=== PATIENT | female | born 1985 ===

== ENCOUNTER 2018-07-10 22:23 | Emergency (ER) | payer SELFPAY ==
[2018-07-10 22:38] VITALS: RESP 18; TEMP 98.1
[2018-07-10 23:45] LABS: BASO % 0.3 % (0.0-2.0); EOS % 0.5 % (0.0-4.0); HEMOGLOBIN 13.3 g/dL (12.0-16.0); LYMPH # 2.3 K/uL (1.0-4.3); LYMPH % 23.9 % (20.0-40.0); MEAN CELL VOLUME 90.6 fl (81.0-99.0); MEAN CORPUSCULAR HEMOGLOBIN 31.3 pg (27.0-31.0); MEAN CORPUSCULAR HGB CONC 34.5 g/dL (33.0-37.0); MONO # 0.5 K/uL (0.0-0.8); MONO % 5.7 % (0.0-10.0); NEUT # 6.6 K/uL (1.8-7.0); NEUT % 69.6 % (50.0-75.0); NRBC % 0.1 % (0.0-0.0); RBC 4.27 Mil/uL (3.80-5.20); RED CELL DISTRIBUTION WIDTH 12.6 % (11.5-14.5); WHITE BLOOD COUNT 9.5 K/uL (4.8-10.8)
[2018-07-10 23:57] LABS: INR 1.1; PROTHROMBIN TIME 12.7 Seconds (9.8-13.1)
--- NOTE | 2018-07-11 00:09 | ED PDOC ---
HPI: General Adult Time Seen by Provider: 07/10/18 22:30 Chief Complaint (Nursing): Female Genitourinary Chief Complaint (Provider): Vaginal Bleeding History Per: Patient, Water Supervisor (Katey Cuba # [id number]) History/Exam Limitations: language barrier Onset/Duration Of Symptoms: Days (x3), Worse Since (today) Current Symptoms Are (Timing): Still Present Additional Complaint(s): Patient is a 33 y/o female with no significant PMHx who presents to the ED for evaluation of brownish spotting for the past three days and heavy vaginal bleeding onset today. Patient denies passage of clots or visible tissue. Patient denies urinary symptoms and any further complications. Of note, patient is 8 weeks and 4 days . Patient states she saw her Surface Grinder once for without an ultrasound. Blood work was performed at this time, however, the results are unknown. PCP: [facility] Past Medical History Reviewed: Historical Data, Nursing Documentation, Vital Signs Vital Signs: Last Vital Signs Temp 98.1 F 07/10/18 22:32 Pulse 78 07/10/18 22:32 Resp 18 07/10/18 22:32 BP 128/89 07/10/18 22:32 Pulse Ox 100 07/10/18 22:32 Primary Care Provider: FAMILY PROVIDER,NO - Medical History PMH: No Chronic Diseases - Surgical History Surgical History: Cholecystectomy - Family History Family History: States: No Known Family Hx - Allergies Allergies/Adverse Reactions: Allergies Allergy/AdvReac Type Severity Reaction Status Date / Time No Known Allergies Allergy Verified 07/10/18 22:32 Review of Systems ROS Statement: Except As Marked, All Systems Reviewed And Found Negative Genitourinary Female: Positive for: Vaginal Bleeding, Other (brownish spotting). Negative for: Dysuria, Frequency, Incontinence, Hematuria Physical Exam - Reviewed Nursing Documentation Reviewed: Yes Vital Signs Reviewed: Yes - Physical Exam Appears: Positive for: Non-toxic, No Acute Distress Head Exam: Positive for: ATRAUMATIC, NORMAL INSPECTION, NORMOCEPHALIC Skin: Positive for: Normal Color, Warm, DRY Eye Exam: Positive for: EOMI, Normal appearance, PERRL Neck: Positive for: Normal, Painless ROM, Supple Cardiovascular/Chest: Positive for: Regular Rate, Rhythm. Negative for: Murmur Respiratory: Positive for: Normal Breath Sounds. Negative for: Respiratory Distress Gastrointestinal/Abdominal: Positive for: Normal Exam, Soft. Negative for: Tenderness Back: Positive for: Normal Inspection. Negative for: L CVA Tenderness, R CVA Tenderness Extremity: Positive for: Normal ROM. Negative for: Pedal Edema, Deformity Lymphatic: Positive for: Deferred Neurological/Psych: Positive for: Alert, Oriented (x3) - Laboratory Results Result Diagrams: 07/10/18 23:37 07/10/18 23:37 Lab Results: PT 12.7 Seconds (9.8-13.1) 07/10/18 23:37 INR 1.1 07/10/18 23:37 APTT 34.0 Seconds (25.6-37.1) 07/10/18 23:37 - ECG O2 Sat by Pulse Oximetry: 100 (RA) Pulse Ox Interpretation: Normal Medical Decision Making Medical Decision Making: Time: 2240 Impression: Most Likely Threatened Plan: Type and Screen BMP Beta-HCG, Quantitative Troponin I CBC PTT Prothrombin Time Preg 1st Trimester/ OB TV [US] Reassess Time: 1126 FINDINGS: GESTATION: UTERUS: Uterus measures 9.8 x 6.4 x 7.6 cm and appears anteverted. CERVIX: Closed. Unremarkable. OVARIES: Unremarkable. No mass. FREE FLUID: No free fluid. MISCELLANEOUS: A gestational sac is present. No yolk sac is seen. A pole is present. [place] rump length measures 2.3 cm compatible with 9.0 weeks estimated ultrasound age. No heart motion is seen. This is compatible with demise. Right ovary measures 2.6 x 2.4 x 1.9 cm. Left ovary measures 3.0 x 1.6 x 1.9 cm. IMPRESSION: 1. An approximately 9 week pole is seen. However, there is no heart motion identified. The findings are compatible with demise. 2. These findings are being telephoned to the referring clinicians at the time of this interpretation. Electronically signed on July 10, 2018 11:26:05 PM EDT by: Gerald Murrieta M.D., Certified by [facility], Diagnostic Radiology Time: 1135 Discussed findings of demise with patient. Patient informed nothing could be done to stop the progrewssion of a a miscarriage. Patient advised to confirm status to followup with Surface Grinder to repeat HCG levels. Patient to be disc harged home. Scribe Attestation: Documented by Chris Mae, acting as a scribe Elizabeth Gilbert MD Provider Scribe Attestation: All medical record entries made by the Scribe were at my direction and personally dictated by me. I have reviewed the chart and agree that the record accurately reflects my personal performance of the history, physical exam, medical decision making, and the department course for this patient. I have also personally directed, reviewed, and agree with the discharge instructions and disposition. Disposition - Clinical Impression Clinical Impression: Threatened miscarriage in early - Disposition Disposition Time: 01:15 Condition: STABLE Additional Instructions: Follow up with ancient art curator in 3 to 5 days for further evaluation of labs and status. Return to the emergency department for severe bleeding, pain, or fever. Instructions: Threatened Miscarriage (DC) Forms: [facility] (Bulgarian) Print Language: INDIAN
[2018-07-11 00:28] LABS: BLOOD UREA NITROGEN 13 mg/dl (7-17); GFR NON-AFRICAN AMERICAN > 60
[2018-07-11 00:29] LABS: CALCIUM 9.4 mg/dL (8.4-10.2)
[2018-07-11 02:22] VITALS: BP 148/91; PULSE 88
[2018-07-11 05:06] VITALS: O2SAT 100
--- NOTE | 2018-07-11 12:35 | US ---
Date of service: 07/10/2018 PROCEDURE: OB Pelvic Ultrasound HISTORY: vaginal bleeding LMP: 05/10/2018 COMPARISON: None available. FINDINGS: UTERUS: Gestational sac: 31 mm equivalent to 8 weeks 0 days. [place]-rump length 23 mm equivalent to 9 weeks 0 days No detectable cardiac activity age (Ultrasound estimated): 8 weeks 5 days [place]-gestational hemorrhage: None. Date of delivery (Ultrasound estimated) : 02/15/2019 Uterus measures 9.8 x 6.4 x 7.6 cm. Normal in size and appearance. CERVIX: Long and closed. No cervical abnormality seen. RIGHT OVARY: Measures 2.6 x 2.4 x 1.9 cm. No mass lesion. Normal flow. LEFT OVARY: Measures 3.0 x 1.6 x 1.9 cm. No solid mass. Normal flow. FREE FLUID: None. OTHER FINDINGS: None. IMPRESSION: Intrauterine gestation of approximately 8 weeks 4 days. cardiac activity not detected. This is strongly concerning for demise. Please correlate with serial beta HCG evaluation. The preliminary findings for this examination were reported by [facility] at 11:26 p.m. on 07/10/2018. There is concurrence of this report with the preliminary findings.
== END 2018-07-11 02:00 | disposition home or self-care (01) ==
LOC: H.ER 22:23
DX: O20.0 Threatened abortion (principal); Z3A.08 8 weeks gestation of pregnancy

== ENCOUNTER 2018-07-16 06:22 | Day surgery (SDC) | payer SELFPAY ==
[2018-07-16] MEDS ORDERED: Sodium Chloride 0.9% 1,000 ML IV STA (07:43)
--- NOTE | 2018-07-16 07:44 | ED PDOC ---
HPI: Female Pain Time Seen by Provider: 07/16/18 07:16 Chief Complaint (Nursing): Female Genitourinary Chief Complaint (Provider): Pelvic pain History Per: Patient History/Exam Limitations: no limitations Onset/Duration Of Symptoms: Days (1 week) Current Symptoms Are (Timing): Still Present Additional Complaint(s): Pt. with pelvic cramps and pain. Was here earlier and dx with demise. Here as she has more pain. Mild vaginal bleeding. No nausea, vomit, diarrhea, weakness, headaches, dizziness. No fever. No dysuria. Past Medical History Reviewed: Nursing Documentation, Vital Signs Vital Signs: Last Vital Signs Temp 97.6 F 07/16/18 06:36 Pulse 62 07/16/18 06:36 Resp 19 07/16/18 06:36 BP 119/76 07/16/18 06:36 Pulse Ox 100 07/16/18 06:36 Primary Care Provider: Adi Wakefield - Medical History PMH: No Chronic Diseases - Surgical History Surgical History: Cholecystectomy - Family History Family History: States: Unknown Family Hx - Living Arrangements Living Arrangements: With Family - Home Medications Home Medications: Ambulatory Orders Medication Instructions Recorded No Known Home Med 07/16/18 - Allergies Allergies/Adverse Reactions: Allergies Allergy/AdvReac Type Severity Reaction Status Date / Time No Known Allergies Allergy Verified 07/10/18 22:32 Review of Systems ROS Statement: Except As Marked, All Systems Reviewed And Found Negative Genitourinary Female: Positive for: Vaginal Bleeding, Pelvic Pain Physical Exam - Reviewed Nursing Documentation Reviewed: Yes Vital Signs Reviewed: Yes - Physical Exam Appears: Positive for: Non-toxic, No Acute Distress Head Exam: Positive for: ATRAUMATIC, NORMAL INSPECTION, NORMOCEPHALIC Skin: Positive for: Normal Color, Warm, DRY Eye Exam: Positive for: EOMI, Normal appearance, PERRL ENT: Positive for: Normal ENT Inspection Neck: Positive for: Normal, Painless ROM Cardiovascular/Chest: Positive for: Regular Rate, Rhythm Respiratory: Positive for: CNT, Normal Breath Sounds Gastrointestinal/Abdominal: Positive for: Soft, Tenderness (across lower pelvis) Pelvic Exam: Positive for: External Exam Normal, Speculum Exam Normal (mild dark blood in vaginal vault). Negative for: Tender W/Cervical Motion Back: Positive for: Normal Inspection. Negative for: L CVA Tenderness, R CVA Tenderness Extremity: Positive for: Normal ROM. Negative for: Tenderness, Pedal Edema Neurological/Psych: Positive for: Awake, Alert, Normal Tone - Laboratory Results Result Diagrams: 07/16/18 07:55 07/16/18 07:55 Interpretation Of Abn Labs: 2147.2 bhcg; O pos - ECG O2 Sat by Pulse Oximetry: 100 - CT Scan/US us Other Rad Studies (CT/US): Read By Radiologist Other Rad Interpretation: open cervix, demise 9wk 3day. - Progress ED Course And Treament: 1244: Stable. Spoke with Dr. Cotton who will see pt. in the ER. 1333: Dr. Cotton is taking pt. to the Or. Stable. Disposition - Clinical Impression Clinical Impression: demise - Patient ED Disposition Is Patient to be Admitted: Yes Counseled Patient/Family Regarding: Studies Performed, Diagnosis - Disposition Disposition Time: 10:00 Condition: STABLE - Pt Status Changed To: Hospital Disposition Of: Inpatient - Admit Certification Admit to Inpatient:: After my assessment, the patient will require hospitalization for at least two midnights. This is because of the severity of symptoms shown, intensity of services needed, and/or the medical risk in this patient being treated as an outpatient. - POA Present On Arrival: None
[2018-07-16 08:19] LABS: BASO % 0.2 % (0.0-2.0); EOS % 0.1 % (0.0-4.0); HEMOGLOBIN 12.9 g/dL (12.0-16.0); LYMPH # 0.9 K/uL (1.0-4.3); LYMPH % 6.8 % (20.0-40.0); MEAN CELL VOLUME 91.8 fl (81.0-99.0); MEAN CORPUSCULAR HEMOGLOBIN 31.3 pg (27.0-31.0); MEAN CORPUSCULAR HGB CONC 34.1 g/dL (33.0-37.0); MONO # 0.6 K/uL (0.0-0.8); MONO % 4.2 % (0.0-10.0); NEUT # 11.7 K/uL (1.8-7.0); NEUT % 88.7 % (50.0-75.0); NRBC % 0.1 % (0.0-0.0); PLATELET COUNT 186 K/uL (130-400); RBC 4.13 Mil/uL (3.80-5.20); RED CELL DISTRIBUTION WIDTH 12.7 % (11.5-14.5); WHITE BLOOD COUNT 13.2 K/uL (4.8-10.8)
[2018-07-16 08:33] LABS: ALB/GLOB RATIO 1.3 (1.0-2.1); ALBUMIN 4.4 g/dL (3.5-5.0); ALT/SGPT 21 U/L (9-52); AST/SGOT 23 U/L (14-36); BLOOD UREA NITROGEN 10 mg/dl (7-17); CALCIUM 9.1 mg/dL (8.4-10.2); GFR NON-AFRICAN AMERICAN > 60
[2018-07-16 09:48] LABS: LYMPHOCYTE 6 % (20-50); MONOCYTE 4 % (0-10); NEUTROPHIL 90 % (42-75); PLATELET ESTIMATE NORMAL (NORMAL); TOTAL CELLS COUNTED 100
[2018-07-16 09:49] LABS: ANISOCYTOSIS SLIGHT; LARGE PLATELETS PRESENT; MICROCYTOSIS SLIGHT; OVALOCYTES SLIGHT
--- NOTE | 2018-07-16 10:00 | US ---
Date of service: 07/16/2018 PROCEDURE: OB Pelvic Ultrasound HISTORY: preg and pain LMP: 05/07/2018 COMPARISON: None available. FINDINGS: UTERUS: Gestational sac: Sac diameter 4.6 cm. Irregular sac. This is equivalent to 10 weeks 1 day. [place]-rump length: 21 mm. Equivalent to 8 weeks 5 days. No detectable cardiac activity. age (Ultrasound estimated): 9 weeks 3 days [place]-gestational hemorrhage: None. Date of delivery (Ultrasound estimated) : 02/15/2019 Uterus measures 10.5 x 5.8 x 7.4 cm. Normal in size and appearance. CERVIX: Closed cervix not appreciated sonographically by transabdominal technique. RIGHT OVARY: Measures 3.0 x 3.1 x 1.6 cm. No mass lesion. Normal flow. LEFT OVARY: Measures 2.7 x 1.9 x 1.3 cm. No solid mass. Normal flow. FREE FLUID: None. OTHER FINDINGS: None. IMPRESSION: Intrauterine gestation of approximately 9 weeks 3 days gestational age. Absent cardiac activity. With sac diameter equivalent to 10 weeks 1 day, this is consistent with demise. No subchorionic hemorrhage. Irregular gestational sac with likely open cervix.
[2018-07-16] MEDS ORDERED: Midazolam 2 MG/2 ML VIAL ONE (13:48)
[2018-07-16] MEDS ORDERED: Propofol 10 mg/ml Inj (20 ML) ONE (13:48)
[2018-07-16] MEDS ORDERED: Silver Nitrate Topical - Stick ONE (14:35)
[2018-07-16] MEDS ORDERED: cefOXitin IV 1 gm in Dextrose 0 GM/0 ML BAG IVPB ONE (14:36)
[2018-07-16] MEDS ORDERED: Oxytocin 10 Units/ml Inj ONE (14:36)
[2018-07-16] MEDS ORDERED: Ferric Subsulfate Sol(60 mL) ONE (14:36)
[2018-07-16] MEDS ORDERED: Succinylcholine 200 mg/10 ml Inj IV ONE (14:46)
[2018-07-16] MEDS ORDERED: Lidocaine 4% (Laryng-O-Jet) Kit MM ONE (14:47)
[2018-07-16] MEDS ORDERED: Lactated Ringer's 1,000 ML IV ONE (14:50)
[2018-07-16] MEDS ORDERED: Dexamethasone 4 mg/1 ml ONE (15:05)
[2018-07-16] MEDS ORDERED: Sevoflurane - Inhalation Anesthetic Liq (250 ml) ONE (15:21)
[2018-07-16] MEDS ORDERED: HYDROmorphone 0.5 mg/0.5 ml ISec IVP PRN (15:34)
[2018-07-16] MEDS ORDERED: Dexamethasone 4 mg/1 ml IVP PRN (15:34)
[2018-07-16 15:48] VITALS: RESP 18
--- NOTE | 2018-07-16 15:59 | CP.SDSHP ---
Same Day Surgery H & P - History Proposed Procedure: Suction D and C Pre-Op Diagnosis: Missed - Allergies Allergies: Allergies No Known Allergies Allergy (Verified 07/10/18 22:32) - Physical Exam Vital Signs: Vital Signs 07/16/18 07/16/18 07/16/18 13:33 13:34 13:39 Temperature 98 F 98 F Pulse Rate 86 86 Respiratory 18 18 Rate Blood Pressure 118/66 118/66 O2 Sat by Pulse 100 100 Oximetry 07/16/18 07/16/18 15:30 15:45 Temperature 97.1 F L 97.3 F L Pulse Rate 60 58 L Respiratory 15 18 Rate Blood Pressure 122/67 120/95 H O2 Sat by Pulse 99 99 Oximetry - Impression Impression: Missed . discussed medical and surgical management. pt opted for d and c informed consent obatined - Date & Time Date: 07/16/18 Time: 01:00 Short Stay Discharge - Short Stay Discharge Admitting Diagnosis/Reason for Visit: DEMISE Progress Note/Discharge Note with Instructions: Doing well D/c home f/u with [facility] in one week NPV
[2018-07-16 17:30] VITALS: BP 129/86; PULSE 64; TEMP 98.8
[2018-07-16 17:33] VITALS: O2SAT 96
--- NOTE | 2018-07-20 08:54 | OP ---
PROCEDURE DATE: 07/16/2018 PREOPERATIVE DIAGNOSIS: Missed . POSTOPERATIVE DIAGNOSIS: Missed . OPERATION PERFORMED: Suction dilation and curettage with sharp curettage. SURGEON: Latoya Cotton MD TYPE OF ANESTHESIA: General. ANESTHESIA ADMINISTERED BY: Dr. Dale Barnes. ESTIMATED BLOOD LOSS: 25 mL. INTRAVENOUS FLUIDS: The patient received approximately 400 mL of D5 LR intraoperatively. The patient was straight catheterized prior to starting the procedure. OPERATIVE FINDINGS: Normal external female genitalia. Urethra normal. Cervix smooth, approximately 1 cm dilated. Blood noted at the os. 10 weeks' size. No adnexal masses. DESCRIPTION OF PROCEDURE: After informed consent was obtained, the patient was taken to the operating room where she was given general anesthesia. She was then prepped and draped in a normal sterile fashion, placed in a dorsal lithotomy position. Straight catheter was inserted into the urethra. Bladder was emptied of its contents. Weighted speculum was inserted into the vagina. The cervix was visualized and grasped with a single-tooth tenaculum. The cervix was then gently dilated and a #9 curette was introduced into the uterine cavity. The suction device was activated and it was rotated in a clockwise fashion. Products of conception were extracted. A sharp curettage was then performed until a gritty texture was noted. The suction device was then re-inserted into the uterine cavity and rotated in a clockwise fashion to remove any remaining debris. All instruments were then removed from the uterus. The tenaculum site was inspected and noted to be hemostatic. Uterus was noted to be firm. The patient was then awakened from general anesthesia and taken to recovery room in awake and stable condition. Latoya Cotton MD
== END 2018-07-16 18:14 | disposition home or self-care (01) ==
LOC: H.ER 06:22 → H.SDS 13:33 → UNDOADMIN 13:33 → H.ERHOLD 13:33 → UNDODISIN 18:14 → H.SDS 18:14
PROVIDERS: ATTEND Obstetrics & Gynecology Gynecology
PROC: 10D17ZZ Extraction of Products of Conception, Retained, Via Natural or Artificial Opening (ICD-10-PCS; principal; 2018-07-16 14:30)
DX: O02.1 Missed abortion (principal)